=== PATIENT | male | born 1940 ===

== ENCOUNTER 2018-05-08 15:25 | Outpatient (CLI) | payer MEDICARE, SELFPAY ==
[2018-05-10 18:53] LABS: CMV DNA Detect/Quant, P Undetected IU/mL (Undetected)
== END 2018-05-08 15:45 ==
PROVIDERS: PCP Family Medicine; Visit Provider Internal Medicine Hematology & Oncology
DX: C92.10 Chronic myeloid leukemia, BCR/ABL-positive, not having achieved remission (principal); T59.891A Toxic effect of other specified gases, fumes and vapors, accidental (unintentional), initial encounter
CPT/HCPCS: 36415; 87497